=== PATIENT | female | born 1990 | race Two or more races ===

== ENCOUNTER 2019-03-17 04:46 | Inpatient (IN) | payer OTHER ==
[~2019-03-17] VITALS: Ht 160 cm; Wt 76.2 kg
[2019-03-17] MEDS ORDERED: PRENATAL TABLE1 EAC1 PO (05:25)
== END 2019-03-19 11:49 | disposition home or self-care (01) | DRG 807 ==
LOC: LDR 04:46 → OB/GYN 04:46
PROVIDERS: ADMIT Obstetrics & Gynecology
PROC: 10E0XZZ Delivery of Products of Conception, External Approach (ICD-10-PCS; principal; 2019-03-17)
PROC: 4A1HXCZ Monitoring of Products of Conception, Cardiac Rate, External Approach (ICD-10-PCS; 2019-03-17)
DX: O80 Encounter for full-term uncomplicated delivery (principal); Z37.0 Single live birth; Z3A.37 37 weeks gestation of pregnancy